=== PATIENT | male | born 1960 | race Caucasian/White ===

== ENCOUNTER 2017-08-17 18:47 | Emergency (ER) | payer BC ==
[~2017-08-17 18:47] MED LIST: LISI-368 PO; OMEG-45 PO; SIM10 PO
--- NOTE | 2017-08-17 18:57 | ER Report ---
History and Physical Time Seen By MD: 18:57 Hx. of Stated Complaint: Patient feeling symptomatic high blood pressure all weekend. Patient reports SOB when ambulating. (KATIUSKA ABURTO) HPI/ROS CHIEF COMPLAINT: Shortness of breath HISTORY OF PRESENT ILLNESS: This is a 56-year-old male who presents to the emergency department for shortness of breath and chest pressure. Patient states that over the last 3-4 days he's had some increased shortness of breath with some chest pressure. Patient states that he feels this is due to his high blood pressure. Patient also states that he's had some increased shortness of breath and chest pressure with past several months that increases when he is walking. Patient denies headaches, change in vision, diaphoresis, nausea, vomiting, diarrhea, urinary symptoms. REVIEW OF SYSTEMS: Constitutional: No fever, no chills. Eyes: No discharge. ENT: No sore throat. Cardiovascular: As above. Respiratory: As above. Gastrointestinal: No abdominal pain, no vomiting. Genitourinary: No hematuria. Musculoskeletal: No back pain. Skin: No rashes. Neurological: No headache. (KATIUSKA ABURTO) Allergies: Coded Allergies: No Known Drug Allergies (Verified , 02/15/10) Home Meds Reported Medications Lisinopril/Hydrochlorothiazide (LISINOPRIL-HCTZ 20-12.5 MG TAB) 1 Each Tablet, 1 EACH PO QDAY 08/17/17 [place]-3 Fatty Acids/Fish Oil (Fish Oil 1,200 Mg Softgel) 1 Each Capsule.dr, 1 EACH PO, 0 Refills 02/15/10 Simvastatin (Zocor) 10 Mg Tab, 10 MG PO QHS, 0 Refills 02/15/10 Discontinued Reported Medications Lisinopril (Lisinopril) 20 Mg Tablet, 20 MG PO, 0 Refills 02/15/10 Past Medical/Surgical History Patient has a past medical and surgical history of hypertension, hypercholesterolemia. (KATIUSKA ABURTO) Reviewed Nurses Notes: Yes (KATIUSKA ABURTO) Hx Substance Use Disorder: No Hx Alcohol Use: No (KATIUSKA ABURTO) Constitutional Vital Sign - Last 24 Hours 08/17/17 08/17/17 08/17/17/15/18 18:51 18:52 18:52 18:57 Temp 98.1 Pulse 59 62 63 Resp 18 27 26 B/P (MAP) 169/95 (119) 169/95 Pulse Ox 94 94 92 O2 Delivery Room Air 08/17/17 08/17/17 08/17/17 08/17/17 19:00 19:02 19:07 19:12 Pulse 63 58 Resp 24 17 27 B/P (MAP) 160/99 (119) Pulse Ox 92 91 08/17/17 08/17/17 08/17/17 08/17/17 19:17 19:20 19:27 19:32 Pulse 60 58 61 Resp 17 23 23 B/P (MAP) 164/89 (114) Pulse Ox 93 90 08/17/17 08/17/17 08/17/17 08/17/17 19:37 19:40 19:42 19:47 Pulse 59 60 60 Resp 15 19 10 B/P (MAP) 142/78 (99) Pulse Ox 91 93 92 08/17/17 08/17/17 08/17/17 08/17/17 19:52 19:57 20:00 20:02 Pulse 60 57 61 Resp 16 18 21 B/P (MAP) 147/82 (103) Pulse Ox 92 93 91 08/17/17 08/17/17 08/17/17 08/17/17 20:07 20:12 20:17 20:20 Pulse 56 59 56 Resp 23 20 17 B/P (MAP) 149/83 (105) Pulse Ox 90 93 92 08/17/17 08/17/17 08/17/17 08/17/17 20:22 20:27 20:32 20:37 Pulse 61 57 56 58 Resp 21 21 11 11 Pulse Ox 91 89 81 92 08/17/17 08/17/17 08/17/17 08/17/17 20:40 20:42 20:47 20:52 Pulse 53 58 54 Resp 17 19 12 B/P (MAP) 136/78 (97) Pulse Ox 86 92 94 08/17/17 08/17/17 08/17/17 08/17/17 20:57 21:00 21:02 21:07 Pulse 54 59 57 Resp 17 14 13 B/P (MAP) 136/85 (102) Pulse Ox 84 90 92 08/17/17 08/17/17 08/17/17 08/17/17 21:12 21:17 21:20 21:22 Pulse 61 54 61 Resp 13 16 9 B/P (MAP) 142/74 (96) Pulse Ox 92 90 91 08/17/17 08/17/17 08/17/17 08/17/17 21:27 21:32 21:32 21:32 Temp 98.0 Pulse 62 60 60 Resp 34 20 20 Pulse Ox 87 92 92 08/17/17 08/17/17 08/17/17 08/17/17 21:37 21:37 21:40 21:40 Pulse 62 62 Resp 22 22 B/P (MAP) 155/73 (100) 155/73 (100) Pulse Ox 92 92 08/17/17 08/17/17 08/17/17 08/17/17 21:42 21:42 21:47 21:47 Pulse 59 59 62 62 Resp 16 16 19 19 Pulse Ox 91 91 85 85 08/17/17 08/17/17 08/17/17 08/17/17 21:52 21:57 22:00 22:02 Pulse 59 60 59 Resp 19 18 21 B/P (MAP) 148/79 (102) Pulse Ox 93 92 90 08/17/17 08/17/17 08/17/17 08/17/17 22:07 22:12 22:17 22:20 Pulse 59 57 63 Resp 19 18 B/P (MAP) 147/85 (105) Pulse Ox 91 91 92 08/17/17 08/17/17 08/17/17 08/17/17 22:22 22:27 22:32 22:37 Pulse 57 62 59 61 Pulse Ox 89 90 87 90 08/17/17 08/17/17 08/17/17 22:42 22:47 22:52 Pulse 55 57 57 B/P (MAP) 142/82 (102) Pulse Ox 77 92 91 (CHUCK GARCIA DO) Physical Exam General Appearance: The patient is alert, has no immediate need for airway protection and no signs of toxicity. Eyes: Pupils equal and round no pallor or injection. ENT, Mouth: Mucous membranes are moist. Respiratory: There are no retractions, lungs are clear to auscultation. Cardiovascular: Regular rate and rhythm, no murmurs, clicks or rubs. Gastrointestinal: Abdomen is soft and non tender, no masses, bowel sounds normal. Neurological: Alert and oriented 4. Moving all extremities. Following all commands. No focal neuro deficits. Skin: Warm and dry, no rashes. Musculoskeletal: Neck is supple non tender. Extremities are nontender, nonswollen and have full range of motion. DIFFERENTIAL DIAGNOSIS: After history and physical exam differential diagnosis was considered for chest pain including but not limited to myocardial ischemia, pericarditis pulmonary embolus, chest wall pain, pleural inflammation and pulmonary infectious causes. (KATIUSKA ABURTO [facility]) Medical Decision Making Data Points Result Diagram: 08/17/17191208/17/171912 Laboratory Hematology Test 08/17/17 19:13 08/17/17 22:15 Red Blood Count 5.69 M/uL (4.00-5.60) Mean Corpuscular Volume 87.2 fL (80.0-96.0) Mean Corpuscular Hemoglobin 29.9 pg (26.0-33.0) Mean Corpuscular Hemoglobin Concent 34.3 g/dL (32.0-36.0) Red Cell Distribution Width 13.4 % (11.5-14.5) Mean Platelet Volume 8.8 fL (7.2-11.1) Neutrophils (%) (Auto) 50.7 % (39.4-72.5) Lymphocytes (%) (Auto) 32.7 % (17.6-49.6) Monocytes (%) (Auto) 8.7 % (4.1-12.4) Eosinophils (%) (Auto) 6.9 % (0.4-6.7) Basophils (%) (Auto) 1.0 % (0.3-1.4) Nucleated RBC Relative Count (auto) 0.1 /100WBC Neutrophils # (Auto) 3.0 K/uL (2.0-7.4) Lymphocytes # (Auto) 1.9 K/uL (1.3-3.6) Monocytes # (Auto) 0.5 K/uL (0.3-1.0) Eosinophils # (Auto) 0.4 K/uL (0.0-0.5) Basophils # (Auto) 0.1 K/uL (0.0-0.1) Nucleated RBC Absolute Count (auto) 0.00 K/uL D-Dimer Quantitative (PE/DVT) < 0.27 ug/ml (0-0.50) Sodium Level 140 mmol/L (137-145) Potassium Level 3.6 mmol/L (3.5-5.0) Chloride Level 103 mmol/L (98-107) Carbon Dioxide Level 29 mmol/L (22-30) Blood Urea Nitrogen 14 mg/dl (9-21) Creatinine 1.00 mg/dl (0.66-1.25) Glomerular Filtration Rate Calc > 60.0 Random Glucose 101 mg/dl (75-110) Calcium Level 8.6 mg/dl (8.4-10.2) Total Bilirubin 0.5 mg/dl (0.2-1.3) Aspartate Amino Transf (AST/SGOT) 35 U/L (0-35) Alanine Aminotransferase (ALT/SGPT) 63 U/L (0-56) Alkaline Phosphatase 158 U/L (0-126) B-Type Natriuretic Peptide 7 pg/ml (0-100) Total Protein 7.3 gm/dl (6.3-8.2) Albumin 3.8 g/dl (3.5-5.0) Troponin I < 0.012 ng/ml Chemistry Test 08/17/17 19:13 08/17/17 22:15 White Blood Count 5.9 k/uL (4.5-11.0) Red Blood Count 5.69 M/uL (4.00-5.60) Hemoglobin 17.0 g/dL (14.0-18.0) Hematocrit 49.7 % (42.0-52.0) Mean Corpuscular Volume 87.2 fL (80.0-96.0) Mean Corpuscular Hemoglobin 29.9 pg (26.0-33.0) Mean Corpuscular Hemoglobin Concent 34.3 g/dL (32.0-36.0) Red Cell Distribution Width 13.4 % (11.5-14.5) Platelet Count 180 K/uL (150-450) Mean Platelet Volume 8.8 fL (7.2-11.1) Neutrophils (%) (Auto) 50.7 % (39.4-72.5) Lymphocytes (%) (Auto) 32.7 % (17.6-49.6) Monocytes (%) (Auto) 8.7 % (4.1-12.4) Eosinophils (%) (Auto) 6.9 % (0.4-6.7) Basophils (%) (Auto) 1.0 % (0.3-1.4) Nucleated RBC Relative Count (auto) 0.1 /100WBC Neutrophils # (Auto) 3.0 K/uL (2.0-7.4) Lymphocytes # (Auto) 1.9 K/uL (1.3-3.6) Monocytes # (Auto) 0.5 K/uL (0.3-1.0) Eosinophils # (Auto) 0.4 K/uL (0.0-0.5) Basophils # (Auto) 0.1 K/uL (0.0-0.1) Nucleated RBC Absolute Count (auto) 0.00 K/uL D-Dimer Quantitative (PE/DVT) < 0.27 ug/ml (0-0.50) Glomerular Filtration Rate Calc > 60.0 Calcium Level 8.6 mg/dl (8.4-10.2) Total Bilirubin 0.5 mg/dl (0.2-1.3) Aspartate Amino Transf (AST/SGOT) 35 U/L (0-35) Alanine Aminotransferase (ALT/SGPT) 63 U/L (0-56) Alkaline Phosphatase 158 U/L (0-126) B-Type Natriuretic Peptide 7 pg/ml (0-100) Total Protein 7.3 gm/dl (6.3-8.2) Albumin 3.8 g/dl (3.5-5.0) Troponin I < 0.012 ng/ml Coagulation Test 08/17/17 19:13 D-Dimer Quantitative (PE/DVT) < 0.27 ug/ml (CHUCK GARCIA DO) EKG/Imaging EKG Interpretation 12 lead EKG: Rhythm: normal sinus rhythm [place]: normal QRS: Incomplete right bundle-branch block ST segments: Inverted T waves in all V leads. No previous EKGs to compare to. Imaging PATIENT NAME: Donald Robertson : 1960 MR: [id number] V: [id number] EXAM DATE: ORDERING PHYSICIAN: KATIUSKA ABURTO TECHNOLOGIST: Location: [facility] Patient: Donald Robertson : 1960 Visit/Account:[id number] Date of Sev: 08/17/2017 Examination: CHEST PA AND LAT Comparison: None. History: Chest pain. Findings: Cardiac and hilar contour size is within normal limits. No consolidation, nodule, or peribronchial inflammation. No pneumothorax, edema, or effusion. Osseous structures are intact. IMPRESSION: No evidence of acute cardiopulmonary disease. Report Dictated By: Trenton Ren MD at 08/17/2017 7:36 PM Report E-Signed By: Trenton Ren MD at 08/17/2017 7:38 PM WSN:[id number] (KATIUSKA ABURTO-) ED Course/Re-evaluation Clinical Indication for ER IV: IV Access ED Course The patient was admitted to a room. A history of physical were obtained. Differential diagnoses were considered. An IV was started. A CBC, CMP, troponin , d-dimer and BNP were obtained. The patient's laboratory studies were unremarkable. 1st troponin was negative, negative d-dimer, negative BMP. I did review these results with the patient and his . I did explain to them the vertigo had repeat a troponin 3 hours from the 1st troponin they are in agreement with this. Two-view chest x-ray negative for any acute cardiopulmonary process. Dr. Garcia will assume the patient's care. Turned Over The care of the patient was turned over to Dr. Garcia. SIL Fraga I authorize my typed signature that I authenticated this report. (KATIUSKA ABURTO) ED Course Care assumed in the shift change. With a 2nd Diagnostic troponin was pending. Patient's 1st troponin was unremarkable. Plan was for the patient to be discharged assuming a 2nd troponin was unremarkable. Patient will follow-up with his primary care physician for diagnostic outpatient treadmill. Patient's 2nd troponin was unremarkable. Results were discussed with him. He is discharged home. He is cautioned return to the ER for any worsening. Decision to Disposition Date: Aug 17, 2017 Decision to Disposition Time: 22:51 (CHUCK GARCIA DO) Depart Departure Latest Vital Signs Vital Signs Date Time Temp Pulse Resp B/P (MAP) Pulse Ox O2 Delivery O2 Flow Rate FiO2 08/17/17 22:52 57 142/82 (102) 91 08/17/17 22:12 18 08/17/17 21:32 98.0 08/17/17 18:52 Room Air (CHUCK GARCIA DO) Impression: Primary Impression: Shortness of breath Additional Impression: Chest pressure Condition: Improved Disposition: HOME OR SELF-CARE Referrals: CECILIA SARKAR (PCP) Patient Instructions: Chest Pain (ED) Additional Instructions: Drink plenty of fluids. Get plenty of rest. Follow-up with your primary care provider within one week for consideration a stress test. Continue with your current medications. May return to the emergency department for worsening symptoms or any other concerns. Problem Qualifiers KATIUSKA ABURTO- Aug 17, 2017 18:57 CHUCK GARCIA DO Aug 17, 2017 22:51
[2017-08-17] MEDS ORDERED: LISI-353 PO (19:00)
[2017-08-17] MEDS ORDERED: ASPIRIN 81 MG CHEW PO ONE (19:10)
--- NOTE | 2017-08-17 19:17 | EKG ---
FACILITY: [facility] [place] PATIENT NAME: VALORIE IZQUIERDO : [id number] MR: [id number] V: [id number] EXAM DATE: ORDERING PHYSICIAN: KATIUSKA ABURTO TECHNOLOGIST: KEVIN Baig Reason : CARDIAC Blood Pressure : / mmHG Vent. Rate : 059 BPM Atrial Rate : 059 BPM P-R Int : 122 ms QRS Dur : 116 ms QT Int : 448 ms P-R-T Axes : 002 -10 069 degrees QTc Int : 443 ms Sinus bradycardia Incomplete right bundle branch block Possible Inferior infarct , age undetermined T wave abnormality, consider anterior ischemia Abnormal ECG No previous ECGs available Confirmed by SACHIN TAMAYO ([id number]) on 08/18/2017 6:22:15 AM Referred By: Confirmed By:SACHIN TAMAYO
[2017-08-17 19:20] LABS: PLATELET COUNT, AUTOMATED 180 K/uL (150-450)
--- NOTE | 2017-08-17 19:43 | RADIOLOGY IMAGING REPORT ---
FACILITY: [facility] PATIENT NAME: Donald Robertson : 1960 MR: [id number] V: [id number] EXAM DATE: ORDERING PHYSICIAN: KATIUSKA ABURTO TECHNOLOGIST: Location: [facility] Patient: Donald Robertson : 1960 Visit/Account:[id number] Date of Sevice: 08/17/2017 Examination: CHEST PA AND LAT Comparison: None. History: Chest pain. Findings: Cardiac and hilar contour size is within normal limits. No consolidation, nodule, or peribr onchial inflammation. No pneumothorax, edema, or effusion. Osseous structures are intact. IMPRESSION: No evidence of acute cardiopulmonary disease. Report Dictated By: Trenton Ren MD at 08/17/2017 7:36 PM Report E-Signed By: Trenton Ren MD at 08/17/2017 7:38 PM WSN:[id number]
[2017-08-17 22:52] VITALS: BP 142/82
== END 2017-08-17 22:57 | disposition home or self-care (01) ==
LOC: ER 19:00
DX: R06.02 Shortness of breath (principal); R07.89 Other chest pain; R00.1 Bradycardia, unspecified; I45.10 Unspecified right bundle-branch block; R94.31 Abnormal electrocardiogram [ECG] [EKG]
CPT/HCPCS: 71046; 82040; 82247; 82310; 82374; 82435; 82565; 82947; 83880; 84075; 84132; 84155; 84295; 84450; 84460; 84484; 84520; 85025; 85379; 93005; 99284

== ENCOUNTER → 2017-09-09 | Outpatient (CLI) | payer BC ==
[~2017-09-09] MED LIST changes: +ATROPINE SUL 1 MG/ML VIAL IVP PRN; +DOBUTamine/DEXT 250 MG/250 ML 250 ML IVPB ONE; +LISI-353 PO; +METOPROLOL TART 5 MG/5 ML VIAL IVP PRN; +NS 0.9% 20 ML SDV IVP PRN
--- NOTE | 2017-09-10 20:25 | RADIOLOGY IMAGING REPORT ---
FACILITY: [facility] PATIENT NAME: VALORIE IZQUIERDO : [id number] MR: [id number] V: [id number] EXAM DATE: ORDERING PHYSICIAN: CECILIA SARKAR TECHNOLOGIST: Belgica Snow PROCEDURE: DOBUTAMINE STRESS ECHOCARDIOGRAPHY INDICATIONS: CHEST DISCOMFORT. FINDINGS: After informed consent the patient was exercised using the Dobutamine protocol. He reached 40 mg/kg/min and he was given 1 mg of Atropine and he only reached 78% of predicted maximum heart rate. He had no complaints of any chest pains or chest pressures. His blood pressure susan appropriately. His baseline EKG showed normal sinus rhythm with some Q waves in the inferior lateral leads. There were no arrhythmias with exercise and there was no ST segment change of ischemia. ECHOCARDIOGRAPHIC PORTION OF STRESS TEST: At rest the patient had normal left ventricular ejection fraction with a grade 1/4 decrease in diastolic function. The ejection fraction was measured at 66%. There were no wall motion abnormalities. With exercise the patient had normal hyperdynamic response to exercise with no left ventricular segmental wall motion abnormalities. IMPRESSION: 1. Normal stress echocardiograph with normal left ventricular function systolically at rest with hyperdynamic response to exercise and low probability of ischemia. 2. A grade 1/4 decrease in diastolic function. 3. There is a trace of mitral, tricuspid, pulmonic and aortic insufficiency with normal right ventricular systolic pressures of 16 mmHg. No other abnormalities were noted. It is noted that the patient did receive 1 mg of Atropine. He also received 5 mg of IV metoprolol post-test. Dictated by: Harjeet Rubio M.D. on 09/09/2017 at 20:07 Transcribed by: LUIS on 09/10/2017 at 18:37 Approved by: Harjeet Rubio M.D. on 09/10/2017 at 20:24 [facility]
--- NOTE | 2017-09-11 23:11 | RT STRESS TEST REPORT ---
[place] [facility] [place]IENT NAME: VALORIE IZQUIERDO : [id number] MR: [id number] V: [id number] EXAM DATE: ORDERING PHYSICIAN: CECILIA SARKAR TECHNOLOGIST: Acquisition Time: 2017-09-09 07:08:39 Total Exercise Time: 00:12:00 Test Indications: chest pain Medications: Protocol: DOBUTAMINE Max HR: 130 BPM 78% of Pred: 165 BPM Max BP: 186/068 mmHG Max Work Load: 1.0 METS see nuclear med report Confirmed by VALORIE SILVA ([id number]) on 09/11/2017 11:11:00 PM Referred By: Overread By: VALORIE SILVA
== END ==
LOC: RESP 01:27
PROVIDERS: ATTEND Nurse Practitioner Family
DX: R07.9 Chest pain, unspecified (principal); E78.00 Pure hypercholesterolemia, unspecified; I10 Essential (primary) hypertension; R53.81 Other malaise; I35.1 Nonrheumatic aortic (valve) insufficiency; I34.0 Nonrheumatic mitral (valve) insufficiency; I36.1 Nonrheumatic tricuspid (valve) insufficiency; I37.1 Nonrheumatic pulmonary valve insufficiency
CPT/HCPCS: 93017; 93325; 93350; J0461; J3490

== ENCOUNTER → 2017-11-04 | Outpatient (CLI) | payer BC ==
[~2017-11-04] MED LIST changes: -ATROPINE SUL 1 MG/ML VIAL IVP PRN; -DOBUTamine/DEXT 250 MG/250 ML 250 ML IVPB ONE; -METOPROLOL TART 5 MG/5 ML VIAL IVP PRN; -NS 0.9% 20 ML SDV IVP PRN
--- NOTE | 2017-11-04 16:52 | RADIOLOGY IMAGING REPORT ---
FACILITY: [facility] [place] PATIENT NAME: Donald Robertson : 1960 MR: [id number] V: [id number] EXAM DATE: ORDERING PHYSICIAN: BRANDAN TROTTER TECHNOLOGIST: Location: [facility] Patient: Donald Robertson : 1960 Visit/Account:[id number] Date of Sevice: 11/04/2017 SINGLE ORGAN HISTORY: Incomplete bladder emptying COMPARISON: None. FINDINGS: The urinary bladder prevoid volume was 188 mL. The post residual 10 mL. Bilateral ureteral jets are identified. The aorta and IVC are patent. IMPRESSION: Post void bladder residual 10 mL Report Dictated By: Sally Castro MD at 11/04/2017 4:47 PM Report E-Signed By: Sally Castro MD at 11/04/2017 4:48 PM WSN:[id number]
== END ==
LOC: US 02:07
DX: R39.14 Feeling of incomplete bladder emptying (principal); R97.20 Elevated prostate specific antigen [PSA]
CPT/HCPCS: 76705